=== PATIENT | male | born 1990 | race Two or more races ===

== ENCOUNTER 2019-09-09 21:07 | Emergency (ER) | payer OTHER, MEDICAID ==
[~2019-09-09] VITALS: Ht 175.3 cm; Wt 84.8 kg
[2019-09-09 22:09] VITALS: BP 107/71
--- NOTE | 2019-09-09 22:10 | NUR ---
PT PRESENTED TO THE ER WITH A C/O L KNEE PAIN.
--- NOTE | 2019-09-09 22:37 | NUR ---
XRAY IN PROGRESS AT THE BEDSIDE.
--- NOTE | 2019-09-09 23:07 | NUR ---
ELLIOT WILSON PAC IS AT THE BEDSIDE SPEAKING TO THE PT.
--- NOTE | 2019-09-09 23:20 | NUR ---
Crutches dispensed. Pt instructed on proper use of crutches. Patient able to demonstrate correct use of crutches. KRISTA WRAP TO LT KNEE
== END 2019-09-09 23:22 | disposition home or self-care (01) ==
LOC: ER 21:13
DX: S80.212A Abrasion, left knee, initial encounter (principal); F10.10 Alcohol abuse, uncomplicated; Y90.9 Presence of alcohol in blood, level not specified; X58.XXXA Exposure to other specified factors, initial encounter; Y93.66 Activity, soccer; Y92.89 Other specified places as the place of occurrence of the external cause; Y99.8 Other external cause status
CPT/HCPCS: 73562-TC; 73564-TC